=== PATIENT | male | born 1995 | race Hispanic/Latino ===

== ENCOUNTER 2021-03-09 13:01 | Emergency (ER) | payer OTHER, SELFPAY ==
[2021-03-09] MEDS ORDERED: Ibuprofen 800 MG TAB ONE (13:25)
[2021-03-09] MEDS ORDERED: Cephalexin 500 MG CAP ONE (14:38)
[2021-03-09] MEDS ORDERED: HYDROcodone/Acetaminophen 5/325 mg Tablet ONE (15:50)
[2021-03-09] MEDS ORDERED: Acetaminophen 325 MG TAB ONE (15:50)
== END 2021-03-09 16:00 | disposition home or self-care (01) ==
LOC: MADERS 13:01
DX: S82.52XA Displaced fracture of medial malleolus of left tibia, initial encounter for closed fracture (principal); S82.832A Other fracture of upper and lower end of left fibula, initial encounter for closed fracture; S00.93XA Contusion of unspecified part of head, initial encounter; V43.61XA Car passenger injured in collision with sport utility vehicle in traffic accident, initial encounter